=== PATIENT | female | born 1970 ===

== ENCOUNTER 2017-05-16 11:00 | Emergency (ER) | payer MEDICARE, MEDICAID ==
[2017-05-16] MEDS ORDERED: HUMULIN R 100 UNIT/ML VIAL SC ONE (11:01)
--- NOTE | 2017-05-16 11:46 | Emergency Department Record ---
History of Present Illness - General Chief complaint: Nausea, Vomiting, Diarrhea Stated complaint: NAUSEA,ABDOMINAL PAIN Time Seen by Provider: 05/16/17 11:39 Source: Patient Mode of Arrival: Ambulatory Limitations: No limitations - History of Present Illness Initial comments: 46 yo female presents with nausea and vomiting since Tuesday. She has a history of endstage renal disease on dialysis Tuesday, Tuesday, and . She states she had a full run on Tuesday. No fevers. She has had some cough. Her dialysis on Tuesday was a full run. No diarrhea. No blood in her bowel movements or vomiting. She has some associated abdominal cramps. Her dialysis and PCP are in [place]. She states this is her first visit to this hospital. MD complaint: Abdominal pain, Nausea, Vomiting, Other (Cough) Onset/Timin Description of Vomiting: Watery Location: Diffuse Radiation: None Quality: Sharp Consistency: Intermittent Improves with: None Worsens with: None Associated Symptoms: Cough, Fever/chills, Loss of appetite, Nausea/vomiting - Related Data Home Medications Medication Instructions Recorded Confirmed Last Taken Acetaminop W/ Codeine 300/30Mg 1 tab PO Q6H 05/16/17 05/16/17 Unknown [Tylenol #3] Acetaminophen [Tylenol Arthritis] 650 mg PO ASDIR 05/16/17 05/16/17 Unknown Amlodipine Besylate [Norvasc] 10 mg PO DAILY 05/16/17 05/16/17 Unknown B Complex W-C No.20/Folic Acid 1 mg PO DAILY 05/16/17 05/16/17 Unknown [Nephrocaps Softgel] Calcitriol 0.5 mcg PO DAILY 05/16/17 05/16/17 Unknown Calcium Acetate 668 mg PO TID 05/16/17 05/16/17 Unknown Calcium Carbonate [Tums] 200 mg PO BID 05/16/17 05/16/17 Unknown Carvedilol 25 mg PO BID 05/16/17 05/16/17 Unknown Ergocalciferol (Vitamin D2) 50,000 unit PO WEEKLY 05/16/17 05/16/17 Unknown [Vitamin D2] Lorazepam [Ativan] 1 mg PO BID 05/16/17 05/16/17 Unknown Losartan Potassium 100 mg PO DAILY 05/16/17 05/16/17 Unknown Metoclopramide HCl [Reglan] 10 mg PO TID 05/16/17 05/16/17 Unknown Norgestimate-Ethinyl Estradiol 1 each PO DAILY 05/16/17 05/16/17 Unknown [Norg-Ee 0.18-0.215-0.25/0.025] Omeprazole 20 mg PO BID 05/16/17 05/16/17 Unknown Ondansetron HCl [Zofran] 4 mg PO Q8H 05/16/17 05/16/17 Unknown Sertraline HCl [Zoloft] 100 mg PO DAILY 05/16/17 05/16/17 Unknown Sodium Polystyrene Sulfonate 15 gm PO ASDIR 05/16/17 05/16/17 Unknown [Kayexelate] Tramadol HCl [Ultram] 50 mg PO Q8H 05/16/17 05/16/17 Unknown Allergies Allergy/AdvReac Type Severity Reaction Status Date / Time No Known Drug Allergies Allergy Verified 05/16/17 11:35 Travel Screening - Travel/Exposure Within Last 30 Days Have you traveled within the last 30 days?: No Review of Systems Constitutional: Reports: Malaise, Weakness. Denies: Chills, Fever Eyes: Denies: Eye discharge, Eye pain, Photophobia, Vision change ENT: Denies: Congestion, Throat pain Respiratory: Reports: Cough. Denies: Dyspnea, Hemoptysis, Stridor, Wheezes Cardiovascular: Denies: Chest pain, Palpitations, Syncope Endocrine: Reports: Fatigue. Denies: Polydipsia, Polyuria Gastrointestinal: Reports: Abdominal pain (cramps), Nausea, Vomiting. Denies: Constipation, Diarrhea, Melena Genitourinary: Denies: Dyspareunia, Dysuria, Retention, Urgency Musculoskeletal: Denies: Arthralgia, Back pain, Joint swelling, Myalgia Skin: Denies: Bruising, Change in color, Rash Neurological: Denies: Confusion, Headache, Numbness, Weakness Psychiatric: Denies: Anxiety Hematological/Lymphatic: Denies: Blood Clots, Easy bleeding, Easy bruising, Swollen glands Past Medical History - SOCIAL HISTORY Smoking Status: Never smoker Alcohol Use: None Drug Use: None - RESPIRATORY Hx Respiratory Disorders: Yes Hx Pulmonary Embolism: Yes - CARDIOVASCULAR Hx Cardio Disorders: Yes Hx Hypertension: Yes - NEURO Hx Neuro Disorders: Yes Hx CVA: Yes - GI Hx GI Disorders: No - Hx Genitourinary Disorders: Yes Hx Renal Disease: Yes (kidney failure) - ENDOCRINE Hx Endocrine Disorders: No - MUSCULOSKELETAL Hx Musculoskeletal Disorders: Yes Hx Arthritis: Yes - PSYCH Hx Psych Problems: Yes Hx Anxiety: Yes Hx Depression: Yes - HEMATOLOGY/ONCOLOGY Hx Hematology/Oncology Disorders: No Family Medical History Any Significant Family History?: No Physical Exam - General General Appearance: Alert, Oriented x3, Cooperative, No acute distress Limitations: No limitations - Head Head exam: Normal inspection - Eye Eye exam: Normal appearance, PERRL. negative: Conjunctival injection, Periorbital swelling, Scleral icterus - ENT ENT exam: Normal exam, Mucous membranes moist, Normal orophraynx Ear exam: Normal external inspection Nasal Exam: Normal inspection Mouth exam: Normal external inspection Teeth exam: Normal inspection Throat exam: Normal inspection. negative: Tonsillar erythema, Tonsillomegaly, Tonsillar exudate, R peritonsillar mass, L peritonsillar mass - Neck Neck exam: Normal inspection, Full ROM. negative: Tenderness - Respiratory Respiratory exam: Normal lung sounds bilaterally. negative: Respiratory distress, Rhonchi, Stridor, Wheezes - Cardiovascular Cardiovascular Exam: Regular rate, Normal rhythm, Normal heart sounds, Other ( DELGADO fistula with intact bruit/pulse) - GI/Abdominal GI/Abdominal exam: Soft, Tenderness, Other (very soft abdomen, no rebounding or guarding but diffusely tender) - Rectal Rectal exam: Deferred - exam: Deferred - Extremities Extremities exam: Normal inspection, Normal capillary refill. negative: Pedal edema - Back Back exam: Reports: Normal inspection, Full ROM. Denies: CVA tenderness (R), CVA tenderness (L), Muscle spasm, Rash noted, Tenderness - Neurological Neurological exam: Alert, Normal gait, Oriented X3 - Psychiatric Psychiatric exam: Normal affect, Normal mood - Skin Skin exam: Dry, Intact, Normal color, Warm Course Vital Signs 05/16/17 11:31 Temperature 98.3 F Pulse Rate 93 H Respiratory 18 Rate Blood Pressure 170/96 Pulse Ox 100 - Reevaluation(s) Reevaluation #1: 05/16/17 11:47 The vitals were reviewed No acute changes. HTN noted. 05/16/17 11:49 No prior records on EMR 05/16/17 14:14 The patient reports continued abdominal pain and some nausea Her labs were reviewed with her. She has chronic anemia on CBC The Lipase is mildly elevated at 96 K is 6.1 EKG NSR rate 86, intervals Qtc 519, axis normal, ST NS changes, LVH. No old for comparison. 05/16/17 14:15 She now reports a recent admission to [facility] for PD catheter removal due to infection She is now on HD while the area heals. No concerns about her incisions. 05/16/17 15:26 The UA is negative for LE or N. CT demonstrates a small amount of ascites otherwise normal The patient still has nausea, pain, and she is due for dialysis tomorrow [facility] will be contacted for transfer. 05/16/17 15:51 I MAGAN Ibarra of . He accepts the transfer. He recommends treatment of the hyperkalemia prior to transfer and it will be rechecked at [facility]. Medical Decision Making - Lab Data Result diagrams: 05/16/17 12:05 05/16/17 12:05 Disposition Disposition: Transfer Clinical Impression: Abdominal pain, Vomiting, Hyperkalemia, End stage renal disease Disposition: Acute Care Hospital Transfer Transfer To: [facility] Reason For Transfer: ESRD, abdominal pain, vomiting Accepting Physician: Stacey Time Discussed w/Accepting Physician: 15:52 Condition: (2) Stable Forms: Patient Portal Access Time of Disposition: 15:30 Quality - Quality Measures Quality Measures: N/A - Blood Pressure Screening Does Patient Have Any of the Following: Active Dx of HTN Blood Pressure Classification: Hypertensive Reading Systolic Measurement: 170 Diastolic Measurement: 96 Screening for High Blood Pressure: Patient Exclusion, Hx of HTN [G9744]
[2017-05-16] MEDS ORDERED: ONDANSETRON HCL IV 4 MG/2 ML VIAL IVP ONE (11:47)
[2017-05-16 12:27] LABS: INR 1.4; PARTIAL THROMBOPLASTIN TIME 28.2 SECONDS (24.5-39.1); PROTHROMBIN TIME (PATIENT) 15.4 SECONDS (9.5-12.1)
[2017-05-16 12:29] LABS: CREATININE 6.4 mg/dL (0.5-0.9)
[2017-05-16 12:30] LABS: BASO % 0.5 % (0-6); EOS % 0.3 % (0-6); HEMATOCRIT 29.7 % (35.0-47.0); HEMOGLOBIN 9.4 gm/dl (11.6-16.0); LYMPH % 13.5 % (16-45); MEAN CELL VOLUME 88.4 fl (81-97); MEAN CORPUSCULAR HGB CONC 31.6 g/dl (32-36); MEAN PLATELET VOLUME 10.9 fl (7.4-10.4); MONO % 14.7 % (0-9); PLATELET COUNT 206 K/uL (130-400); RED BLOOD COUNT 3.36 M/uL (3.80-5.40); RED CELL DISTRIBUTION WIDTH 18.3 % (11.5-14.5); TOTAL PROTEIN 7.7 g/dL (6.6-8.7); WHITE BLOOD COUNT W/O DIFF 7.4 K/uL (4.2-12.2)
[2017-05-16 12:32] LABS: MEAN CORPUSCULAR HEMOGLOBIN 27.9 pg (27-33)
[2017-05-16 12:34] LABS: ALB/GLOB RATIO 0.8 (1.1-1.8); ALBUMIN 3.5 g/dL (4.0-5.0)
[2017-05-16] MEDS ORDERED: MORPHINE SULFATE 5 MG/ML PFS IVP ONE (13:06)
[2017-05-16 14:47] LABS: URINE APPEARANCE CLEAR; URINE BILIRUBIN NEGATIVE (NEGATIVE); URINE BLOOD SMALL (NEGATIVE); URINE COLOR YELLOW; URINE GLUCOSE (UA) NEGATIVE (NEGATIVE); URINE KETONE NEGATIVE (NEGATIVE); URINE LEUKOCYTE ESTERASE NEGATIVE (NEGATIVE); URINE NITRITE NEGATIVE (NEGATIVE); URINE UROBILINOGEN 0.2 E.U./dL (0.20 - 1.00)
[2017-05-16 14:57] LABS: URINE BACTERIA 1+; URINE WBC 0 - 2 (0-2/hpf)
[2017-05-16] MEDS ORDERED: DEXTROSE 50 % IVP 50 ML DISP.SYRIN IVP ONE (15:52)
[2017-05-16] MEDS ORDERED: HUMULIN R 100 UNIT/ML VIAL IV ONE (15:52)
[2017-05-16] MEDS ORDERED: HYOSCYAMINE SULFATE ODT 0.125 MG TAB.SUBL SL ONE (16:17)
--- NOTE | 2017-05-17 09:39 | CT SCAN REPORT ---
EXAM: CT OF THE ABDOMEN AND PELVIS WITHOUT CONTRAST HISTORY: NAUSEA AND VOMITING FOR TWO DAYS. TECHNIQUE: Sequential axial images were obtained from the diaphragms through the ischiorectal fossa without intravenous or oral contrast administration. FINDINGS: There is moderate cardiomegaly. No pericardial effusion. No infiltrate or pleural effusion. The nonopacified liver, gallbladder, pancreas, and spleen appear normal. The adrenal glands appear normal. The kidneys are atrophic. There is a small amount of abdominal and pelvic ascites present. No evidence for bowel obstruction. The uterus and adnexal structures are normal. The urinary bladder is normal. The osseous structures are normal. IMPRESSION: 1. SMALL AMOUNT OF ABDOMINAL AND PELVIC ASCITES. 2. THE REMAINDER OF THE EXAMINATION IS UNREMARKABLE. JOB NUMBER: [id number] MTDD
== END 2017-05-16 17:48 | disposition short-term general hospital (02) ==
LOC: ER 11:00
DX: I12.0 Hypertensive chronic kidney disease with stage 5 chronic kidney disease or end stage renal disease (principal); N18.9 Chronic kidney disease, unspecified; R19.7 Diarrhea, unspecified; R05 Cough; E87.5 Hyperkalemia; R11.2 Nausea with vomiting, unspecified; R10.9 Unspecified abdominal pain; D53.9 Nutritional anemia, unspecified; Z86.711 Personal history of pulmonary embolism; Z99.2 Dependence on renal dialysis
CPT/HCPCS: 99285 ×2; 96374; 96375; 83690; 85025; 85730; 85610; 80053; 36416; 81001; 82948; 74176; 93005; 93010; J1980; J2405; J1815; J2270